=== PATIENT | female | born 1975 | race African-American/Black ===

== ENCOUNTER 2018-11-14 05:10 | Day surgery (SDC) | payer OTHER ==
[2018-11-09 18:03] VITALS: BMI 27.4
--- NOTE | 2018-11-14 07:46 | HP ---
History & Physical Update - History History: No Change - Physical Physical: No Change - Assessment Assessment: No Change - Plan Plan: No Change (No change in H&P from 11/09/18, for hysteroscpy, D&C due to AUB)
[2018-11-14] MEDS ORDERED: MIDAZOLAM HCL 2 MG/2 ML SINGLE DOSE VIAL ONE ×3 (10:56→11:17)
[2018-11-14] MEDS ORDERED: oxyCODONE HCL 5 MG TABLET PO PRN (11:03)
[2018-11-14] MEDS ORDERED: ONDANSETRON 4 MG/2 ML VIAL IVPUSH PRN (11:03)
[2018-11-14] MEDS ORDERED: PROMETHAZINE HCL 25 MG/1 ML VIAL IVPB PRN (11:03)
[2018-11-14] MEDS ORDERED: LACTATED RINGERS SOLUTION 1,000 ML IV SCH (11:15)
[2018-11-14] MEDS ORDERED: ACETAMINOPHEN 325 MG TABLET (FP) PO PRN (11:16)
[2018-11-14] MEDS ORDERED: PROPOFOL 20 ML ONE (11:20)
[2018-11-14] MEDS ORDERED: ACETAMINOPHEN INJECTION 100 ML IVPB ONE (12:35)
[2018-11-14] MEDS ORDERED: ACETAMINOPHEN 1000 MG/100 ML VIAL (NON FORMULARY) IVPB ONE (12:51)
[2018-11-14 13:10] VITALS: TEMP 97.8
[2018-11-14] MEDS ORDERED: IBUPROFEN 400 MG TABLET (FP) PO ONE ×3 (14:58→15:04)
[2018-11-14 15:07] VITALS: BP 109/71; PULSE 86
--- NOTE | 2018-11-15 17:25 | PATH ---
Surgical Pathology Report Patient Name: NISREEN SINGLETON [facility]. Rec. #: [id number] /Age/Gender: 1975 (Age: 43) / F Account: [id number] Location: [facility] SUR[facility]ICAL Taken: 11/14/2018 Received: 11/14/2018 Reported: 11/15/2018 Physicians: Yanelis Portillo M.D. Specimen(s) Received ENDOMETRIAL CURETTINGS AND POLYP/FIBROID Clinical History Abnormal uterine bleeding Final Diagnosis ENDOMETRIAL CURETTINGS, POLYP/FIBROID, HYSTEROSCOPIC MYOMECTOMY AND DILATION AND CURETTAGE: FIBROMUSCULAR TISSUE CONSISTENT WITH SUBMUCOSAL LEIOMYOMA. FRAGMENTS OF SECRETORY ENDOMETRIUM AND SCANT BENIGN CERVICAL SQUAMOUS MUCOSA. Electronically Signed Bhavna Hodgson M.D. Gross Description Received in formalin labeled "endometrial curettings and polyp/fibroid" are multiple irregular fragments of pink-means and hemorrhagic, mucoid soft tissue measuring 2 x 2 x 0.6 cm. Entire specimen is submitted in one cassette. MLZafarZ/11/14/2018 ramirez/11/14/2018
--- NOTE | 2018-11-21 10:49 | OP ---
Operative Note - Note: Operative Date: 11/14/18 Pre-Operative Diagnosis: abnormal uterine bleeding Operation: hysteroscopic myomectomy, suction D&C Findings: anterior uterine fibroid, uterine polyp Post-Operative Diagnosis: Same as Pre-op Surgeon: Yanelis Portillo Anesthesiologist/COVERING MACHINE OPERATOR: Elena Sandoval MD Anesthesia: General Specimens Removed: fibroid, endometrial curettings Estimated Blood Loss (mls): 25 Drains, Volume Out (mls): 180 (fluid defecit - NSS)
--- NOTE | 2018-11-21 14:03 | OP ---
DATE OF OPERATION: 11/14/2018 PREOPERATIVE DIAGNOSIS: Abnormal uterine bleeding. POSTOPERATIVE DIAGNOSIS: Abnormal uterine bleeding with intracavitary uterine fibroid. PROCEDURE: Hysteroscopic myomectomy, suction dilation and curettage. SURGEON: Yanelis Blank DO ANESTHESIA: General by KIKI Wells. ESTIMATED BLOOD LOSS: 25 mL. FLUID DEFICIT: Normal saline 180 mL. COMPLICATIONS: None. COUNTS: Sponge, needle and instrument count correct. DISPOSITION: Stable to PACU. BRIEF HISTORY AND PROCEDURE: Patient is a 43-year-old female who had been seen in the office with complaints of abnormal uterine bleeding and had elected to undergo a hysteroscopic evaluation, possible resection of intracavitary lesions. The patient signed the consent for the procedure in the office which was reconfirmed upon admission on November 14, 2018. She was then taken back to the operating room, given general anesthesia, placed in the dorsal lithotomy position. A hard timeout was performed. She was prepped and draped in the usual sterile fashion. A speculum was placed inside the vagina. The anterior lip of the cervix was grasped with a tenaculum. The cervix was dilated to accommodate an operative hysteroscope which was advanced to the fundus of the uterus. An approximately 1- to 2-cm anterior uterine fibroid and a smaller uterine polyp were appreciated. These were resected in several passes using the resectoscope device under direct visualization. Suction D&C was then performed to remove all detached tissue. Fluid deficit was 180 mL of normal saline. No complications. Sponge, needle and instrument count was reported to be correct. Next all instruments were removed from the surgical field. Patient was awoken from anesthesia and recovering in stable condition in the PACU after the procedure. YANELIS BLANK DO /[id number]
== END 2018-11-14 15:11 | disposition home or self-care (01) ==
LOC: JASU-SURG 05:10
PROVIDERS: ATTEND Obstetrics & Gynecology
PROC: 0UJD8ZZ Inspection of Uterus and Cervix, Via Natural or Artificial Opening Endoscopic (ICD-10-PCS; 2018-11-14)
PROC: 0UB98ZZ Excision of Uterus, Via Natural or Artificial Opening Endoscopic (ICD-10-PCS; principal; 2018-11-14 10:30)
PROC: 0UDB7ZX Extraction of Endometrium, Via Natural or Artificial Opening, Diagnostic (ICD-10-PCS; 2018-11-14 10:30)
DX: N93.9 Abnormal uterine and vaginal bleeding, unspecified (principal); D25.9 Leiomyoma of uterus, unspecified
CPT/HCPCS: 36415; 84703; 86850; 86900; 86901; 88305-TC; 94760; J0131

== ENCOUNTER 2022-12-10 12:49 | Emergency (ER) | payer OTHER ==
[2022-12-10 13:07] VITALS: BMI 30.9
[2022-12-10] MEDS ORDERED: FAMOTIDINE 20 MG/50 ML IVPB 20 MG/50 ML MG IVPB ONE (15:16)
[2022-12-10] MEDS ORDERED: SODIUM CHLORIDE 0.9% 500 ML INFUS.BAG IV ONE (15:16)
[2022-12-10] MEDS ORDERED: KETOROLAC TROMETHAMINE 30 MG/1 ML VIAL IM ONE (15:30)
[2022-12-10] MEDS ORDERED: FAMOTIDINE 10 MG/ML VIAL IVPB ONE (15:54)
[2022-12-10] MEDS ORDERED: KETOROLAC TROMETHAMINE 15 MG/ML VIAL ONE (15:54)
[2022-12-10 16:40] LABS: BASO % 1.7 % (0-2.0); EOS % 2.2 % (0-4.5); HEMATOCRIT 37.3 % (32.4-45.2); HEMOGLOBIN 12.7 GM/dL (10.7-15.3); LYMPH % 51.8 % (8-40); MCH 27.1 pg (25.7-33.7); MEAN CELL VOLUME 79.8 fl (80-96); MEAN PLT VOLUME 7.2 fl (7.5-11.1); MONO % 9.6 % (3.8-10.2); NEUT % 34.7 % (42.8-82.8); PLATELET COUNT 294 10^3/uL (134-434); RBC 4.67 M/mm3 (3.60-5.2); RDW 14.6 % (11.6-15.6); WHITE BLOOD COUNT 4.2 K/mm3 (4.0-10.0)
[2022-12-10 17:02] LABS: ALBUMIN 4.1 g/dl (3.4-5.0); BLOOD UREA NITROGEN 18.1 mg/dL (7-18); CALCIUM 9.3 mg/dL (8.5-10.1)
[2022-12-10 17:05] LABS: CREATININE 0.9 mg/dL (0.55-1.3)
[2022-12-10 17:07] LABS: BILIRUBIN,TOTAL 0.2 mg/dL (0.2-1)
[2022-12-10 18:03] VITALS: BP 120/72; PULSE 80; RESP 20; TEMP 98.1
== END 2022-12-10 18:43 | disposition home or self-care (01) ==
LOC: JER 12:49
PROC: 3E033GC Introduction of Other Therapeutic Substance into Peripheral Vein, Percutaneous Approach (ICD-10-PCS; principal; 2022-12-10)
PROC: 3E0233Z Introduction of Anti-inflammatory into Muscle, Percutaneous Approach (ICD-10-PCS; 2022-12-10)
DX: R07.2 Precordial pain (principal); R00.2 Palpitations; R06.02 Shortness of breath; R42 Dizziness and giddiness
CPT/HCPCS: 36415; 71046-TC-FY; 80053; 84484; 85025; 93005; 93010; 99285-25